=== PATIENT | male | born 1955 | race Caucasian/White ===

== ENCOUNTER 2020-12-27 09:21 | Observation (INO) ==
[~2020-12-27 09:21] MED LIST: *HR* FentaNYL (PF) 100 MCG/2 ML VIAL ONE; *HR* Midazolam HCl 2 MG/2 ML VIAL ONE; Acetaminophen IV 1,000 MG/100 ML BAG IVPB ONE; Famotidine 20 MG/2 ML VIAL IVP ONE; Lidocaine -MPF 2% 2 ML VIAL ONE; Ondansetron 4 MG/2 ML VIAL ONE; Povidone-Iodine 45 ML, Sodium Chloride IRRigation 1,000 ML IR ONE; Pregabalin 50 MG CAPSULE PO ONE; Ringers Solution, Lactated 1,000 ML IVC ONE; TOTAL JOINT MIXTURE (100ML) INTRAART ONE
[2020-12-27] MEDS ORDERED: CeFAZolin Syr 2,000MG/20 ML 2,000 MG/20 ML SYRINGE IVPB ONE (10:22)
[2020-12-27] MEDS ORDERED: Ringers Solution, Lactated 1,000 ML IVC SCH ×3 (10:30→19:00)
[2020-12-27] MEDS ORDERED: *HR* HYDROmorphone PF 0.5 MG/0.5 ML SYRINGE IVP PRN (10:42)
[2020-12-27] MEDS ORDERED: *HR* HYDROcodone/Acet 5/325 mg TABLET PO PRN (10:42)
[2020-12-27] MEDS ORDERED: Ondansetron 4 MG/2 ML VIAL IVP PRN ×2 (10:42→18:58)
[2020-12-27] MEDS ORDERED: TOTAL JOINT MIXTURE (100ML) INTRAART ONE (11:45)
[2020-12-27] MEDS ORDERED: Povidone-Iodine 45 ML, Sodium Chloride IRRigation 1,000 ML IR ONE (11:45)
[2020-12-27] MEDS ORDERED: Heparin 1,000 UNITS/500 mL 500 ML ONE (12:00)
[2020-12-27] MEDS ORDERED: Lidocaine HCL 4 ML Topical Solution (Laryng-O-Jet Kit Sterile Pak) TP ONE (12:02)
[2020-12-27] MEDS ORDERED: *HR* FentaNYL (PF) 100 MCG/2 ML VIAL ONE ×2 (12:05→12:09)
[2020-12-27] MEDS ORDERED: *HR* Midazolam HCl 2 MG/2 ML VIAL ONE (12:05)
[2020-12-27] MEDS ORDERED: Dexamethasone 4 MG/ML VIAL ONE (12:06)
[2020-12-27] MEDS ORDERED: *HR* Succinylcholine 200 MG/10 ML VIAL IVP ONE (12:06)
[2020-12-27] MEDS ORDERED: Ondansetron 4 MG/2 ML VIAL ONE (12:06)
[2020-12-27] MEDS ORDERED: *HR* Propofol 200 MG/20 ML VIAL IVP ONE (12:06)
[2020-12-27] MEDS ORDERED: Lidocaine -MPF 2% 2 ML VIAL ONE (12:06)
[2020-12-27] MEDS ORDERED: Bupivacaine-MPF 0.25% 10 ML VIAL ONE (12:12)
[2020-12-27] MEDS ORDERED: Tranexamic Acid 1,000 MG/10 ML VIAL ONE ×3 (12:16→13:51)
[2020-12-27] MEDS ORDERED: Vancomycin 1,000 MG VIAL ONE (12:16)
[2020-12-27] MEDS ORDERED: Acetaminophen IV 1,000 MG/100 ML BAG IVPB ONE (12:19)
[2020-12-27] MEDS ORDERED: SODIUM CHLORIDE 0.9% IVPB ONE (12:41)
[2020-12-27] MEDS ORDERED: GENTAMICIN IVPB ONE (12:41)
[2020-12-27] MEDS ORDERED: Lacri-Lube 3.5 GM TUBE ONE (13:26)
[2020-12-27] MEDS ORDERED: EPHEDrine 50 MG/ML VIAL ONE ×2 (13:29→16:14)
[2020-12-27] MEDS ORDERED: *HR* Vasopressin 20 UNIT/ML VIAL ONE (13:34)
[2020-12-27] MEDS ORDERED: *HR* Phenylephrine 10 MG/ML VIAL ONE (14:50)
[2020-12-27] MEDS ORDERED: Tobramycin Sulf (Sterile) 1.2 GM VIAL ONE (15:41)
[2020-12-27 16:16] LABS: ABG Base Excess -1 mEq/L (-2 to 3); ABG Chloride 104 mEq/L (98-107); ABG Glucose 114 mg/dL (60-95); ABG HCO3 23 mEq/L (21-27); ABG Ionized Calcium 1.16 mmol/L (1.15-1.35); ABG Oxygen Saturation 100 % (95-98); ABG PCO2 34 mmHg (35-45); ABG PH 7.44 pH Units (7.32-7.45); ABG PO2 192 mmHg (85-104); ABG TCO2 24 mEq/L (20-26)
[2020-12-27] MEDS ORDERED: Albumin Human 5% 12.5 GM/250 ML IV.SOLN ONE (16:28)
[2020-12-27] MEDS ORDERED: *HR* LORazepam 2 MG/ML VIAL IVP PRN ×3 (18:56)
[2020-12-27] MEDS ORDERED: *HR* Promethazine 25 MG/ML VIAL IM PRN (18:58)
[2020-12-27] MEDS ORDERED: Sennosides 8.6 MG TABLET PO PRN (18:58)
[2020-12-27] MEDS ORDERED: MOM Conc 10 ML UD.LIQ PO PRN (18:58)
[2020-12-27] MEDS ORDERED: Naloxone 0.4 MG/ML INJ IVP PRN (18:58)
[2020-12-27] MEDS: CeFAZolin 2 GM/120 ML BAG IVPB SCH (21:43)
[2020-12-28] MEDS: *HR* OxyCODONE Immed Rel 5 MG TABLET PO PRN ×2 (02:23→13:37)
[2020-12-28 03:17] LABS: BUN/Creatinine Ratio 18 (6-26); Blood Urea Nitrogen 12 mg/dL (8-23); Calcium 7.9 mg/dL (8.6-10.3); Carbon Dioxide 23 mEq/L (23-29); Chloride 106 mEq/L (98-107); Glucose 257 mg/dL (70-105); Osmolality,Calculated 291 (280-300); Sodium 136 mEq/L (136-145); eGFR For African Americans > 60 (> 60); eGFR For Non-African Americans > 60 (> 60)
[2020-12-28 03:25] LABS: Basophils % 0.1 %; Hematocrit 27.5 % (37.5-50.1); Hemoglobin 9.1 g/dL (12.9-16.9); Immature Granulocytes % 0.4 % (0-4); Lymphocytes # 0.5 K/mcL (0.6-4.6); Lymphocytes % 5.8 %; Mean Corpuscular HGB Conc 33.1 g/dL (31.6-35.5); Mean Corpuscular Hemoglobin 32.6 pg (28.0-33.3); Mean Corpuscular Volume 98.6 fL (83.0-100.0); Mean Platelet Volume 10.7 fL (9.4-12.4); Monocytes # 0.9 K/mcL (0.0-1.3); Monocytes % 9.1 %; Neutrophils # 7.9 K/mcL (1.6-8.9); Platelet Count 194 K/mcL (140-400); Red Blood Count 2.79 M/mcL (4.19-5.50); Red Cell Distribution Width 12.5 % (11.5-14.5); Segmented Neutrophils % 84.6 %; White Blood Count 9.4 K/mcL (4.3-11.1)
[2020-12-28] MEDS: Ascorbic Acid 500 MG TABLET PO SCH ×2 (07:43→16:58)
[2020-12-28] MEDS: CeFAZolin 2 GM/120 ML BAG IVPB SCH ×2 (07:47→17:00)
[2020-12-28] MEDS ORDERED: Multivit/Ca/Min/Fe/FA 1 TAB TABLET PO SCH (09:00)
[2020-12-28] MEDS ORDERED: Folic Acid 1 MG TABLET PO SCH (09:00)
[2020-12-28 16:40] VITALS: BP 127/60
[2020-12-28 17:52] LABS: Influenza A PCR Negative (Negative); Influenza B PCR Negative (Negative); Resp. Syncytial Virus PCR Negative (Negative)
[2020-12-28 18:42] LABS: SARS-CoV-2 by PCR (In House) Negative (Negative)
[2020-12-28] MEDS ORDERED: Aspirin Enteric Coated 81 MG Tablet PO SCH (18:59)
== END 2020-12-28 20:00 ==
LOC: 3NENU 09:21 → SAMDAY 09:21 → 3NENU 18:59
PROVIDERS: ADMIT Nurse Practitioner; ATTEND Orthopaedic Surgery